=== PATIENT | female | born 1950 | race Caucasian/White ===

== ENCOUNTER 2017-08-26 14:30 | Emergency (ER) | payer OTHER ==
[2017-08-26 14:42] VITALS: TEMP 97.9; BMI 34.0
[2017-08-26] MEDS ORDERED: DIPHTH,PERTUSS(ACELL),TET 0.5 ML DISP.SYRIN IM ONE (15:35)
[2017-08-26] MEDS ORDERED: ACETAMINOPHEN 325 MG TABLET (FP) PO ONE (15:36)
[2017-08-26] MEDS ORDERED: IBUPROFEN 600 MG TABLET (FP) PO ONE ×2 (15:36→15:56)
[2017-08-26] MEDS ORDERED: CEFAZOLIN 1 GM in DEXTROSE 5%-WATER - 50 ML IVPB ONE (15:42)
--- NOTE | 2017-08-26 15:42 | PDOC ---
Attending Attestation - Resident Resident Name: Mina Cisneros - ED Attending Attestation I have performed the following: I have examined & evaluated the patient, The case was reviewed & discussed with the resident, I agree w/resident's findings & plan, Exceptions are as noted - HPI HPI: 08/26/17 15:42 66y F no pmhx presents with L wrist pain s/p mechanical fall. Pt states she was walking in a parking lot when her heels got stuck on something. She fell no her L arm and complainng of L arm pain. denies any numness/tlingling/weakness of hand or other extremities, head injury/trauma, headache, neck pain, back pain, shulder/wrist pain. pt notes some mild pain to her L knee. exam: head: atraumatic extermities: normal movement of RUE, LLE, RLE at each joint, superficial abrasion on L knee without focal bony tendernes/creepitus/stepffsm, +abrasion over L wrist and 2cm laceration over distal ulna, +defomrity at distal forearm, sensation intact, flexion/extension of digits normal on b/l hands. suspect open fx will obtain xray of wrist/forearm will ck lbas will give ancef/tetnaus - Physicial Exam PE: 08/27/17 08:18 see above - Medical Decision Making 08/26/17 16:25 pts wrist xray noted for a displaced communited distal radiaus/ulnar fracture that inolves the joint space with anterior dislocation will dw ortho will need reduction/likely surgical repair given abx due to open nature 08/26/17 17:25 case signed out to dr. singh to follow up with dr. cisneros and dispo
--- NOTE | 2017-08-26 15:48 | PDOC ---
History of Present Illness - General Chief Complaint: Injury Stated Complaint: POSSIBLE BROKEN ARM Time Seen by Provider: 08/26/17 14:59 - History of Present Illness Initial Comments: 08/26/17 15:43 66 yo F with no significant pmh who p/w left wrist injury. Patient reports acute onset of left wrist pain s/p mechanical fall within 30 minutes SILK SNAPPER. She reports walking across the parking lot to her house and her shoe got caught on a step-off in the ground and landed on her left knee and left wrist inverted inwards. Patient noted immediate, sharp, shooting pain of left wrist following incident. Was unable to move wrist d/t pain. Denies head/neck/back trauma or LOC. Denies anticoagulation. No OTC symptom management. Denies h/o recurrent falls. Denies F/C, N/V, CP, SOB, abdominal pain, diarrhea, constipation, urinary complaints, weakness, lightheadedness, sensory changes. PMHx: as noted above. Does not recall past tetanus. ROS: as noted above SHx: Allergies: NKDA Past History - Past Medical History Allergies/Adverse Reactions: Allergies Allergy/AdvReac Type Severity Reaction Status Date / Time peanut Allergy Difficulty Verified 08/26/17 14:35 Breathing Home Medications: Ambulatory Orders NK [No Known Home Medication] 08/26/17 COPD: No - Immunization History Immunization Up to Date: No - Suicide/Smoking/Psychosocial Hx Smoking History: Never smoked Have you smoked in the past 12 months: No Information on smoking cessation initiated: No Hx Alcohol Use: Yes (SOCIAL) Drug/Substance Use Hx: No Substance Use Type: None Review of Systems - Review of Systems Comments:: 08/26/17 15:47 GENERAL/CONSTITUTIONAL: No fever or chills. No weakness. HEAD, EYES, EARS, NOSE AND THROAT: No change in vision. No ear pain or discharge. No sore throat. CARDIOVASCULAR: No chest pain or shortness of breath RESPIRATORY: No cough, wheezing, or hemoptysis. GASTROINTESTINAL: No nausea, vomiting, diarrhea or constipation. GENITOURINARY: No dysuria, frequency, or change in urination. MUSCULOSKELETAL:+ Left wrist injury. No neck or back pain. SKIN: No rash NEUROLOGIC: No headache, vertigo, loss of consciousness, or change in strength/ sensation. ENDOCRINE: No increased thirst. No abnormal weight change HEMATOLOGIC/LYMPHATIC: No anemia, easy bleeding, or history of blood clots. ALLERGIC/IMMUNOLOGIC: No hives or skin allergy. *Physical Exam - Vital Signs Last Vital Signs Temp Pulse Resp BP Pulse Ox 97.9 F 75 18 177/85 98 08/26/17 14:36 08/26/17 14:36 08/26/17 14:36 08/26/17 14:36 08/26/17 14:36 - Physical Exam Comments: 08/26/17 15:48 GENERAL: Awake, alert, and fully oriented, in no acute distress. HEAD: No signs of trauma, normocephalic, atraumatic EYES: PERRLA, EOMI, sclera anicteric, conjunctiva clear ENT: Hearing grossly normal, nares patent, oropharynx clear without exudates. Moist mucosa NECK: Normal ROM, supple, no lymphadenopathy, JVD, or masses LUNGS: No distress, speaks full sentences, clear to auscultation bilaterally HEART: Regular rate and rhythm, normal S1 and S2, no murmurs, rubs or gallops, peripheral pulses normal and equal bilaterally. Left Upper Extremity: Left sided ulnar bony deformity and angulation. Bony ttp at head and styloid process of ulna. +Abrasion and closed 2 mm laceration overlying skin of ulnar styloid process. + Left wrist and metacarpal edema Absent scaphoid ttp. Intact radial pulses. Equal and symmetric. ROM limited at wrist 2/2 pain. RUE : Normal inspection, Normal range of motion, no edema. No clubbing or cyanosis. SKIN: Warm, Dry, normal turgor, no rashes or lesions noted Procedures - Joint Reduction Left Joint Reduction Site: left: Anterior Dislocation (Left anterior ulna and radius Lema fracture) Pre-Procedure NV Exam: normal Conscious Sedation: No Finger Block: Hematoma (Dorsal Left Wrist Hematoma Block) Anesthetic: 1% Lidocaine Amount (mL): 5 Post-Procedure NV Exam: normal Complications: No Splint: Yes Immobilized: Yes ED Treatment Course - LABORATORY CBC & Chemistry Diagram: 08/26/17 15:54 08/26/17 15:54 - RADIOLOGY Radiology Studies Ordered: Category Date Time Status WRIST W/HAND-LEFT* [RAD] Stat Radiology 08/26/17 15:35 Ordered Medical Decision Making - Medical Decision Making 08/26/17 15:46 66 yo F with no significant pmh who p/w left wrist injury. VSS, AF, A&OX3. No evidence or report of head injury. Neg CTH imaging indication. Nexus criteria negative C-spine injury. + Left wrist bony deformity/angulation at ulna and ulnar styloid process, with 2 mm closed laceration overlying side of injury. Plain RAD of left wrist/hand to r/o fracture and dislocation. Possible Colles fracture vs. Smiths fracture open vs. closed. ED Course: CBC, CMP Ancef 1 gm, Tdap, Acetaminophen, Ibuprofen 08/26/17 16:26 Left wrist/hand: Comminuted fracture of distal radius with anterior displacement and fracture of distal ulna with anterior displacement. 08/26/17 16:28 Contacted answering service for orthopedic physician pvc monitor. 08/26/17 17:21 Attempted to contact orthopedic answering service ( second attempt). Answering service to place call back. 08/26/17 17:26 Doctor Kevin recommendations include attempt at reduction, volar splint to injury, pain control, and follow up in his office Tuesday. 08/26/17 18:13 Morphine 4 mg, Zofran 4 mg. Patient advised to f/u with ortho on Tuesday. Stable for d/c with return precautions. *DC/Admit/Observation/Transfer Diagnosis at time of Disposition: Fracture of radius and ulna Qualifiers: Encounter type: initial encounter Fracture type: open Open fracture type: open type I or II Laterality: left Qualified Code(s): S52.92XB - Unspecified fracture of left forearm, initial encounter for open fracture type I or II - Discharge Dispostion Condition at time of disposition: Stable Decision to Admit order: No - Referrals Referrals: Jack Valencia [Primary Care Provider] - Marvin Brown MD [Staff Physician] - - Patient Instructions Printed Discharge Instructions: DI for Wrist Fracture Additional Instructions: Please return to the emergency department with any new or worsening symptoms or concerns. Please follow up with your primary care physician within 72 hours. Please follow up with Dr. Brown/Orthopedics Tuesday in his office. - Post Discharge Activity - Attestations Physician Attestion: 08/26/17 17:30 I attest to the information provided in this note.
[2017-08-26] MEDS ORDERED: ACETAMINOPHEN 325 MG TABLET (FP) ONE (15:55)
[2017-08-26] MEDS ORDERED: ceFAZolin SODIUM 1 GM VIAL ONE (15:56)
[2017-08-26 16:19] LABS: HEMATOCRIT 40.2 % (32.4-45.2); HEMOGLOBIN 13.5 GM/dL (10.7-15.3); LYMPH % 30.6 % (8-40); MCH 28.9 pg (25.7-33.7); MCHC 33.5 g/dl (32.0-36.0); MEAN CELL VOLUME 86.3 fl (80-96); MEAN PLT VOLUME 8.7 fl (7.5-11.1); MONO % 4.3 % (3.8-10.2); NEUT % 62.1 % (42.8-82.8); PLATELET COUNT 212 K/MM3 (134-434); RBC 4.66 M/mm3 (3.60-5.2); RDW 14.5 % (11.6-15.6); WHITE BLOOD COUNT 9.4 K/mm3 (4.0-10.0)
[2017-08-26] MEDS ORDERED: morphine CARPU-JECT 2 MG/1 ML DISP.SYRIN IVPUSH ONE (16:26)
[2017-08-26 16:30] LABS: INR 1.02 (0.82-1.09); PROTHROMBIN TIME (PATIENT) 11.5 SEC (9.7-13.0)
[2017-08-26 16:42] LABS: ALBUMIN 3.7 g/dl (3.4-5.0); ANION GAP 8 (8-16); BLOOD UREA NITROGEN 16 mg/dL (7-18); CALCIUM 8.4 mg/dL (8.5-10.1); CHLORIDE 102 mmol/L (98-107); CO2 26 mmol/L (21-32); CREATININE 0.8 mg/dL (0.55-1.02); GLUCOSE,RANDOM 132 mg/dL (74-106); POTASSIUM 3.7 mmol/L (3.5-5.1); SGOT/AST 19 U/L (15-37); SGPT/ALT 40 U/L (12-78); SODIUM 136 mmol/L (136-145)
[2017-08-26] MEDS ORDERED: MORPHINE SULFATE 2 MG/ML VIAL ONE (16:43)
[2017-08-26 16:44] LABS: ALK PHOS 75 U/L (45-117); BILIRUBIN,TOTAL 0.4 mg/dL (0.2-1.0); TOT PROT 7.4 g/dl (6.4-8.2)
[2017-08-26] MEDS ORDERED: morphine CARPU-JECT 4 MG/1 ML DISP.SYRIN IVPUSH ONE (18:10)
[2017-08-26] MEDS ORDERED: ONDANSETRON 4 MG/2 ML VIAL IVPB ONE (18:12)
[2017-08-26] MEDS ORDERED: morphine SULFATE 4 MG/ML VIAL ONE (18:22)
[2017-08-26] MEDS ORDERED: ONDANSETRON 4 MG/2 ML VIAL ONE (18:23)
[2017-08-26 22:15] VITALS: BP 146/76; PULSE 72
--- NOTE | 2017-08-27 17:49 | EKG ---
Test Reason : Blood Pressure : / mmHG Vent. Rate : 060 BPM Atrial Rate : 060 BPM P-R Int : 156 ms QRS Dur : 086 ms QT Int : 424 ms P-R-T Axes : 045 021 061 degrees QTc Int : 424 ms NORMAL SINUS RHYTHM NORMAL ECG NO PREVIOUS ECGS AVAILABLE Confirmed by JENNIFER DONALDSON, ALIYA ([id number]) on 08/27/2017 5:48:36 PM Referred By: Confirmed By:ALIYA RODRIGUEZ MD
== END 2017-08-26 22:31 | disposition home or self-care (01) ==
LOC: JER 14:30
PROC: 0PSJXZZ Reposition Left Radius, External Approach (ICD-10-PCS; principal; 2017-08-26)
PROC: 0PSLXZZ Reposition Left Ulna, External Approach (ICD-10-PCS; 2017-08-26)
PROC: 2W3DX1Z Immobilization of Left Lower Arm using Splint (ICD-10-PCS; 2017-08-26)
PROC: 3E0234Z Introduction of Serum, Toxoid and Vaccine into Muscle, Percutaneous Approach (ICD-10-PCS; 2017-08-26)
PROC: 3E03329 Introduction of Other Anti-infective into Peripheral Vein, Percutaneous Approach (ICD-10-PCS; 2017-08-26)
DX: S52.512A Displaced fracture of left radial styloid process, initial encounter for closed fracture (principal); S52.612A Displaced fracture of left ulna styloid process, initial encounter for closed fracture; W18.39XA Other fall on same level, initial encounter; Y93.01 Activity, walking, marching and hiking; Y92.481 Parking lot as the place of occurrence of the external cause; Y99.8 Other external cause status
CPT/HCPCS: 36415; 71045-TC-FY; 73090-TC-LT-FY; 73110-TC-LR-FY; 73130-TC-LR-FY; 80053; 85025; 85610; 90715; 93005; 93010; 99281-25

== ENCOUNTER 2017-09-06 13:29 | Day surgery (SDC) | payer OTHER ==
[2017-09-02 13:44] VITALS: BMI 34.7
--- NOTE | 2017-09-06 08:00 | HP ---
[facility] - Chief Complaint Chief Complaint: Left wrist pain History of Present Illness: s/p fall, left wrist pain, fracture History Source: Patient Limitations to Obtaining History: No Limitations - Past Medical History Allergies/Adverse Reactions: Allergies Allergy/AdvReac Type Severity Reaction Status Date / Time No Known Drug Allergies Allergy Verified 09/02/17 13:44 peanut Allergy Difficulty Verified 09/02/17 13:44 Breathing - Current Medications Current Medications: Home Medications Medication Instructions Recorded Oxycodone HCl/Acetaminophen 1 - 2 tab PO Q6H PRN #12 tab MDD 8 08/26/17 [Percocet 5-325 mg Tablet] [facility] Physical Exam - Physical Examination General Appearance: Well Nourished ENT: Clear Lung: Clear to auscultation Heart: Regular rate & rhythm Breasts: Soft Abdomen: Soft Extremities: No edema [facility] Impression/Plan - Impression/Plan Impression: left distal radius fracture Operative Procedure: left distal radius ORIF Date to be Performed: 09/06/17
[2017-09-06] MEDS ORDERED: ROPIVACAINE HCL 0.5% 30ML VIAL ONE (14:54)
[2017-09-06] MEDS ORDERED: MIDAZOLAM HCL 2 MG/2 ML SINGLE DOSE VIAL ONE (14:54)
[2017-09-06] MEDS ORDERED: DEXAMETHASONE SOD PHOSPHATE/PF 10 MG/ML SDV ONE (14:54)
[2017-09-06] MEDS ORDERED: LIDOCAINE HCL 2% (20ML MULTI-DOSE VIAL) NR ONE (15:03)
[2017-09-06] MEDS ORDERED: LIDOCAINE HCL/PF 2% SDV 5ML VIAL ONE (15:36)
[2017-09-06] MEDS ORDERED: PROPOFOL 20 ML ONE ×2 (15:36)
[2017-09-06] MEDS ORDERED: ONDANSETRON 4 MG/2 ML VIAL ONE (15:36)
[2017-09-06] MEDS ORDERED: DEXAMETHASONE SOD PHOSPHATE 4 MG/1 ML VIAL ONE (15:36)
[2017-09-06] MEDS ORDERED: SUCCINYLCHOLINE CHLORIDE 200 MG/10 ML VIAL ONE (15:36)
[2017-09-06] MEDS ORDERED: ceFAZolin SODIUM 1 GM VIAL ONE (15:36)
[2017-09-06] MEDS ORDERED: fentaNYL CITRATE 250 MCG/5 ML VIAL ONE (15:36)
[2017-09-06] MEDS ORDERED: KETOROLAC TROMETHAMINE 30 MG/1 ML VIAL ONE (15:36)
--- NOTE | 2017-09-06 16:54 | OP ---
Operative Note - Note: Operative Date: 09/06/17 (radha) Pre-Operative Diagnosis: left distal radius fx Operation: left distal radius orif Post-Operative Diagnosis: Same as Pre-op Surgeon: Colt Rodarte Pearl Fisherman: Marvin Brown Anesthesia: General, Local Estimated Blood Loss (mls): 0 (tourniquet) Operative Report Dictated: Yes
[2017-09-06] MEDS ORDERED: PROMETHAZINE HCL 25 MG/1 ML VIAL IVPUSH PRN (17:28)
[2017-09-06] MEDS ORDERED: oxyCODONE HCL 5 MG TABLET PO PRN (17:28)
[2017-09-06] MEDS ORDERED: ONDANSETRON 4 MG/2 ML VIAL IVPUSH PRN (17:28)
[2017-09-06] MEDS ORDERED: LACTATED RINGERS SOLUTION 1,000 ML IV SCH (17:45)
--- NOTE | 2017-09-06 18:34 | SPEC ---
DATE OF OPERATION: DATE OF DICTATION: 09/06/2017 PREOPERATIVE DIAGNOSIS: Comminuted intraarticular displaced left distal radius and distal ulna fracture. POSTOPERATIVE DIAGNOSIS: Comminuted intraarticular displaced left distal radius and distal ulna fracture. PROCEDURE: Left distal radius and distal ulna open reduction internal fixation. SURGEON: Colt Rodarte M.D. COAL GASIFICATION TECHNICIAN: Lissett Wiley M.D. ANESTHESIOLOGIST: Rohan Melton M.D. ANESTHESIA: Left interscalene block. DRAINS: None. COMPLICATIONS: None. FLUID REPLACEMENT: 700 mL Plasmalyte. BLOOD LOSS: None. BLOOD GIVEN: None. INDICATION: This patient is a 66-year-old female with the preoperative diagnosis of comminuted intraarticular displaced left distal radius fracture. After understanding the potential risks, complications, alternatives, benefits to surgery versus nonsurgical treatment, the patient elected to pursue this procedure. Patient brought to operating room, peripheral IV placed, IV sedation given, left interscalene block was performed. She received 2 g of IV Ancef. The entire case was done under 3.8 loupe magnification. Typical FCR approach was marked out with a marking pen and incision made with No. 15 scalpel blade. Subcutaneous hemostasis was achieved with a bipolar cautery. The radial artery was retracted gently in a radial direction and ulnar to this, using a fresh No. 15 scalpel blade, the muscular fascia was incised. Blunt dissection was done with my index finger down to the volar aspect of the distal radius. Weitlaner retractors were placed deep into the wound for visualization. A periosteal elevator was used to do subperiosteal dissection exposing the fracture site. There was a main transverse component to the distal radius fracture but in addition there were several pieces, some extending towards the radial carpal joint and some towards the distal radial ulnar joint. The fracture site was copiously irrigated and washed out. All debris including hematoma and muscle were removed. A provisional reduction was performed and seemed to come together quite nicely. There was a small metaphyseal defect. X-rays were taken in A-P and lateral planes documenting excellent position of the fracture fragments, restoring radial height inclination and volar tilt. Next a standard hand innovations left volar low profile DVR plate was placed on the volar aspect of the distal radius. Two K-wires were placed and x-rays were taken documenting excellent position, length and subchondral position. Next the central 3.5 mm screw was placed in a standard fashion, this was 14 mm in length, and the second-most ulnar proximal row screw was placed. This was a 24 mm partially threaded locking screw. X-rays again were taken documenting excellent position and support of the subchondral bone. The rest of the screws were then put in, first 2 additional purple proximal screws of 12 and 14 mm in length for 6 cortices proximally and then the silver drill bit was used to put in the remaining 6 screws of both the proximal and distal row from 18 mm to 24 mm of length, all partially threaded locking screws. All of the guides were removed and passed off the field. Final x-rays were taken in A-P and lateral planes. I was quite happy with the fracture reduction position, position of the radial carpal joint, distal radial ulnar joint length, height and tilt. DETAILS: Standard 3-hole [employer] low profile plate, the 3 proximal 3.5-mm diameter purple screws were 12 mm in length. We used 6 distal screws, all partially threaded locking screws from 18 to 22 mm in length. ADDENDUM: In addition, the patient had a displaced ulnar head fracture, 2 distal plate with plate and screws. However, I used a 0.062 K-wire as a joystick distal fragment, then I was able to move it into a much better position, and then I pinned it in place in a percutaneous fashion. This was holding it in a much better position. Total tourniquet time was 60 minutes. No complications during the case. The patient tolerated this procedure well, was brought to ambulatory recovery room in stable condition. LISSETT WILEY M.D. [id number]
[2017-09-06 18:35] VITALS: TEMP 98
[2017-09-06 19:19] VITALS: BP 142/82; PULSE 65
== END 2017-09-06 19:20 | disposition home or self-care (01) ==
LOC: FASU 13:29
PROVIDERS: ATTEND Orthopaedic Surgery
PROC: 0PSL04Z Reposition Left Ulna with Internal Fixation Device, Open Approach (ICD-10-PCS; 2017-09-06)
PROC: 0PSJ04Z Reposition Left Radius with Internal Fixation Device, Open Approach (ICD-10-PCS; principal; 2017-09-06 16:07)
DX: S52.572A Other intraarticular fracture of lower end of left radius, initial encounter for closed fracture (principal); S52.602A Unspecified fracture of lower end of left ulna, initial encounter for closed fracture; X58.XXXA Exposure to other specified factors, initial encounter; Y93.9 Activity, unspecified; Y92.9 Unspecified place or not applicable
CPT/HCPCS: 73110-TC-LR-FY